=== PATIENT | male | born 1985 | race Hispanic/Latino ===

== ENCOUNTER 2018-12-28 09:29 | Emergency (ER) | payer BC ==
[2018-12-28 09:42] VITALS: RESP 20
[2018-12-28] MEDS ORDERED: Sodium Chloride 0.9% 1,000 ML IV STA (10:24)
--- NOTE | 2018-12-28 11:02 | C.PDOC ---
History Of Present Illness 33 y/o male comes in stating he has heroin addiction and his last use was last night. Patient complained he started having abdominal pain, diarrhea, nausea, and cramping since 5am this morning. States he doesnt wanna take it anymore and requests detox. Patient denies any fever, chills, or other symptoms. Time Seen by Provider: 12/28/18 09:50 Chief Complaint (Nursing): Abdominal Pain History Per: Patient History/Exam Limitations: no limitations Onset/Duration Of Symptoms: Hrs Current Symptoms Are (Timing): Still Present Past Medical History Reviewed: Historical Data, Nursing Documentation, Vital Signs Vital Signs: Last Vital Signs Temp 99.2 F 12/28/18 09:40 Pulse 81 12/28/18 09:40 Resp 20 12/28/18 09:40 BP 122/71 12/28/18 09:40 Pulse Ox 99 12/28/18 09:40 Family History: States: No Known Family Hx - Social History Hx Alcohol Use: No Hx Substance Use: Yes - Immunization History Hx Tetanus Toxoid Vaccination: No Hx Influenza Vaccination: No Review Of Systems Except As Marked, All Systems Reviewed And Found Negative. Constitutional: Negative for: Fever, Chills Cardiovascular: Negative for: Chest Pain Respiratory: Negative for: Cough, Shortness of Breath Gastrointestinal: Positive for: Nausea, Abdominal Pain, Diarrhea. Negative for: Vomiting Genitourinary: Negative for: Dysuria Physical Exam - Physical Exam Appears: Non-toxic, No Acute Distress Skin: Warm, Dry Head: Atraumatic, Normacephalic Eye(s): bilateral: Normal Inspection Oral Mucosa: Moist Neck: Supple Cardiovascular: Rhythm Regular, No Murmur Respiratory: Normal Breath Sounds, No Rales, No Rhonchi, No Wheezing Gastrointestinal/Abdominal: Soft, Tenderness (diffuse tenderness), No Guarding, No Rebound Extremity: Bilateral: Atraumatic, Normal Color And Temperature, Normal ROM Neurological/Psych: Oriented x3, Normal Speech ED Course And Treatment - Laboratory Results Result Diagrams: 12/28/18 11:19 12/28/18 11:19 O2 Sat by Pulse Oximetry: 99 (RA) Pulse Ox Interpretation: Normal Progress Note: Labs and UA ordered. Patient is not actively vomiting. Spoke with Jamari from crisis who states that they do not have any available beds at this moment but possibly will later. Patient was given IV fluids, catapres PO, and ativan IV. On re-evaluation patient feels better, ambulatory, tolerates po and is stable to be d/c home. He was give referral for outpatient detox. Disposition - Disposition Disposition: HOME/ ROUTINE Disposition Time: 13:41 Condition: STABLE Additional Instructions: Follow up with Outpatient detox place as instructed. Return to ED if feel worse. Instructions: Drug Abuse and Drug Addiction (DC) Forms: [employer] (Portuguese) - Clinical Impression Clinical Impression: Drug abuse - PA / PATROL CONDUCTOR / Resident Statement MD/DO has reviewed & agrees with the documentation as recorded. - Scribe Statement The provider has reviewed the documentation as recorded by the Scribe Alexus Leung All medical record entries made by the Kelliibe were at my direction and personally dictated by me. I have reviewed the chart and agree that the record accurately reflects my personal performance of the history, physical exam, medical decision making, and the department course for this patient. I have also personally directed, reviewed, and agree with the discharge instructions and disposition.
[2018-12-28 11:24] LABS: BASO % 0.4 % (0.0-2.0); EOS % 0.2 % (0.0-4.0); LYMPH # 1.1 K/uL (1.0-4.3); LYMPH % 9.7 % (20.0-40.0); MEAN CELL VOLUME 89.2 fL (80.0-94.0); MEAN CORPUSCULAR HEMOGLOBIN 30.7 pg (27.0-31.0); MEAN CORPUSCULAR HGB CONC 34.4 g/dL (33.0-37.0); MEAN PLATELET VOLUME 7.7 fL (7.2-11.7); MONO # 0.2 K/uL (0.0-0.8); MONO % 1.8 % (0.0-10.0); NEUT # 9.5 K/uL (1.8-7.0); NEUT % 87.9 % (50.0-75.0); PLATELET COUNT 325 K/uL (130-400); RBC 4.88 Mil/uL (4.40-5.90); WHITE BLOOD COUNT 10.8 K/uL (4.8-10.8)
[2018-12-28 11:34] LABS: URINE BILIRUBIN NEGATIVE (NEGATIVE); URINE BLOOD NEGATIVE (NEGATIVE); URINE CLARITY Clear (Clear); URINE COLOR Yellow (YELLOW); URINE GLUCOSE (UA) NORMAL (Normal); URINE LEUKOCYTE ESTERASE NEG Leu/uL (Negative); URINE PROTEIN NEGATIVE (NEGATIVE); URINE UROBILINOGEN NORMAL mg/dL (0.2-1.0)
[2018-12-28 11:41] LABS: ALB/GLOB RATIO 1.9 (1.0-2.1); ALBUMIN 5.1 g/dL (3.5-5.0); ALT/SGPT 13 U/L (21-72); AST/SGOT 30 U/L (17-59); BLOOD UREA NITROGEN 19 mg/dL (9-20); CALCIUM 9.7 mg/dl (8.6-10.4); GFR NON-AFRICAN AMERICAN > 60
[2018-12-28 11:44] LABS: BARBITURATES, UR NEGATIVE (NEGATIVE); PHENCYCLIDINE, UR NEGATIVE (NEGATIVE)
[2018-12-28 11:45] LABS: BANDS 5 % (0-2); BASOPHIL 1 % (0-2); LYMPHOCYTE 9 % (20-40); MONOCYTE 2 % (0-10); NEUTROPHIL 82 % (50-75); PLATELET ESTIMATE NORMAL (NORMAL); REACTIVE LYMPHOCYTES 1 % (0-0); TOTAL CELLS COUNTED 100
[2018-12-28 12:02] LABS: BENZODIAZEPINES, UR POSITIVE (NEGATIVE); OPIATES, UR POSITIVE (NEGATIVE)
[2018-12-28 13:55] VITALS: BP 116/68; PULSE 72; TEMP 98.5
[2018-12-28 18:55] VITALS: O2SAT 99
== END 2018-12-28 13:58 | disposition home or self-care (01) ==
LOC: C.ER 09:29
DX: F19.10 Other psychoactive substance abuse, uncomplicated (principal)
CPT/HCPCS: 80053; 81001; 83735; 84100; 85025; 96361; 96374; 99284; G0480; J2060; J7030